=== PATIENT | female | born 1945 | race Caucasian/White ===

== ENCOUNTER → 2016-04-29 | Outpatient (CLI) | payer OTHER | LOC: BMCIMAGING 10:36 | PROVIDERS: ATTEND Internal Medicine Cardiovascular Disease | DX: E78.5 Hyperlipidemia, unspecified (principal); I10 Essential (primary) hypertension; E11.9 Type 2 diabetes mellitus without complications; I25.10 Atherosclerotic heart disease of native coronary artery without angina pectoris; Z86.73 Personal history of transient ischemic attack (TIA), and cerebral infarction without residual deficits ==

== ENCOUNTER 2016-08-09 01:17 | Emergency (ER) | payer OTHER ==
--- NOTE | 2016-08-09 01:19 | EDPHY ---
H & P HPI/ROS: HPI CHIEF COMPLAINT: Left foot possible foreign body HISTORY OF PRESENT ILLNESS: This patient is 71-year-old female coronary artery disease, diabetes, presents emergency room as she states she was pulling carpet earlier today and approximately 25 minutes ago or at 1:00 a.m. she stepped on either piece of water piece of metal she is unsure. She feels like it is still in the bottom of her left foot. Denies any other area trauma. She does tell me tetanus shot is up-to-date. She was barefoot. She tells me she no longer takes diabetes medicine she is off metformin. Past Medical History: Diabetes, coronary disease Past Surgical History: No recent surgical history Social History: Denies daily use of drugs, alcohol, tobacco Family History: Noncontributory ROS REVIEW OF SYSTEMS: A comprehensive 10 point review of systems is otherwise negative aside from elements mentioned in the history of present illness. Exam Constitutional appears well nontoxic in triage nursing summary reviewed, vital signs reviewed, awake/alert. Eyes normal conjunctivae and sclera, EOMI, PERRLA. HENT normal inspection, atraumatic, moist mucus membranes, no epistaxis, neck supple/ no meningismus, no raccoon eyes. Respiratory clear to auscultation bilaterally, normal breath sounds, no respiratory distress, no wheezing. Cardiovascular rate normal, regular rhythm, no murmur, no edema, distal pulses normal. Gastrointestinal soft, non-tender, no rebound, no guarding, normal bowel sounds, no distension, no pulsatile mass. Genitourinary no CVA tenderness. Musculoskeletal no midline vertebral tenderness, full range of motion, no calf swelling, no tenderness of extremities, no meningismus, good pulses, neurovascularly intact. Left foot: Plantar region, left foot, lateral aspect distal aspect there is a small puncture wound, no palpable foreign body. No signs of infection. Skin pink, warm, & dry, no rash, skin atraumatic. Neurologic awake, alert and oriented x 3, AAOx3, moves all 4 extremities equally, motor intact, sensory intact, CN II-XII intact, normal cerebellar, normal vision, normal speech. Psychiatric normal mood/affect. Heme/Lymph/Immune no lymphadenopathy. Differential Diagnosis: Includes but is not limited to in a particular order, puncture wound left foot, Medical Decision Making: Plan for this patient her tetanus shot is up-to-date, x-ray left foot. If unable to visualize foreign body on x-ray will explore wound to make sure there is no significant foreign body. Unclear if this is a metal or piece of wood. Metal should be radio uptake, would may be radiolucent. Re-evaluation: ED x-ray left foot: No opaque foreign body visualized on the x-ray. 0211AM: Procedure Note: Foreign Body Removal from Left Foot. Plantar Region. Under direct visualization there was a piece of wood in her bottom of her left foot. I was able to directly visualize this and remove it with hemostats. Approximately half an inch thin Speare like piece of wood was removed. The wound was copiously explored and cleaned. There is no further foreign body visualized. No arterial injury. No tendon injury. A dressing was placed. She tolerated this very well. No local anesthesia was needed. She understands to watch closely for further signs of infection this includes drainage, redness, pus. If she sees this she understands return emergency room. I do recommend she does warm soaks 3 times a day for next 3 days. Watch for infection Source: Patient - Personal History Tetanus Vaccine Date: 12/19 - Medical/Surgical History Hx Asthma: No Hx Chronic Respiratory Disease: No Hx Diabetes: Yes Hx Cardiac Disease: Yes Hx Renal Disease: No Hx Cirrhosis: No Hx Alcoholism: No Hx HIV/AIDS: No Hx Splenectomy or Spleen Trauma: No Other PMH: depression, HTN, CAD, 3 cardiac stents, bladder sling - Social History Smoking Status: Never smoked Constitutional: Initial Vital Signs Temperature (C) 36.3 C 08/09/16 01:24 Heart Rate 82 08/09/16 01:24 Respiratory Rate 16 08/09/16 01:24 Blood Pressure 147/84 H 08/09/16 01:24 O2 Sat (%) 94 08/09/16 01:24 O2 Delivery Mode Room Air Allergies/Adverse Reactions: Penicillins Allergy (Verified 08/09/16 01:27) RASH,ITCH Home Medications: Medication Instructions Recorded Amlodipine Besylate 2.5 mg PO .DAILY 03/07/11 Aspirin 81 mg PO 03/07/11 FENOFIBRATE NANOCRYSTALLIZED 145 mg PO .DAILY 03/07/11 [Tricor] Hydrocodone Bit/Acetaminophen 1 tab PO Q4-6PRN PRN 03/07/11 [Vicodin 5/500] Metformin HCl [Metformin HCl ER] 500 mg PO .DAILY 03/07/11 Atorvastatin Calcium [Lipitor 40 10/06/13 mg (*)] Metoprolol Succinate [Toprol Xl 10/06/13 200 mg] Venaflexin 10/06/13 predniSONE [predniSONE] 60 mg PO DAILY 5 Days 09/24/14 Departure - Departure Disposition: Home, Routine, Self-Care Clinical Impression: Puncture wound of foot Qualifiers: Encounter type: initial encounter Laterality: left Qualified Code(s): S91.332A - Puncture wound without foreign body, left foot, initial encounter Condition: Good Instructions: Puncture Wound (ED) Additional Instructions: 1.Watch for signs of infection. This includes redness, swelling, drainage, pus. 2. I do recommend warm soaks.
[2016-08-09 01:27] VITALS: BP 147/84; PULSE 82; RESP 16; TEMP 97.3; O2SAT 94
== END 2016-08-09 02:16 | disposition home or self-care (01) ==
LOC: CED 01:17
DX: S91.342A Puncture wound with foreign body, left foot, initial encounter (principal); E11.9 Type 2 diabetes mellitus without complications; I25.10 Atherosclerotic heart disease of native coronary artery without angina pectoris; Z79.82 Long term (current) use of aspirin; Z79.84 Long term (current) use of oral hypoglycemic drugs; Z95.5 Presence of coronary angioplasty implant and graft; W45.8XXA Other foreign body or object entering through skin, initial encounter
CPT/HCPCS: 73630-PO

== ENCOUNTER → 2017-04-28 | Outpatient (CLI) | payer OTHER | LOC: FIMAGING 11:41 | PROVIDERS: ATTEND Orthopaedic Surgery | DX: Z01.818 Encounter for other preprocedural examination (principal); M17.12 Unilateral primary osteoarthritis, left knee ==

== ENCOUNTER 2017-05-11 05:38 | Observation (INO) | payer OTHER ==
--- NOTE | 2017-04-29 14:41 | GHP ---
[f rep st] PREOP HISTORY AND PHYSICAL DATE OF ADMISSION: 05/11/2017 She will be an a.m. admission for surgery at [facility] on May 11, 2017. PROBLEM: Left knee degenerative arthritis. HISTORY OF PRESENT ILLNESS: The patient is a 72-year-old woman, admitted for a left total knee arthr oplasty. She has had progressive pain in both knees for the past 6-8 months. She has had 2 cortison e injections which only helped temporarily. Her left knee is more painful than the right. She had a n MRI of her left knee which shows a complex medial meniscus tear as well as degenerative arthritis i n the medial compartment. She has failed nonsurgical treatment. Her activities are very limited. S he will undergo a left total knee arthroplasty. PAST MEDICAL HISTORY: She had 3 cardiac stents inserted in 2006. She Is checked every year by her c ardiologist and has had stable cardiac status. She also was treated for diabetes, hypertension and e levated cholesterol. No history of DVT, hepatitis. She has sleep apnea and has a CPAP machine altho ugh she does not use it. CURRENT MEDICATIONS: Amlodipine 10 mg per day, atorvastatin 80 mg per day, Plavix 75 mg per day, dul oxetine daily for depression, losartan 100 mg/hydrochlorothiazide 25 mg daily, metformin 500 mg daily , metoprolol ER 100 mg tablets daily. DRUG ALLERGIES: She is allergic to topical penicillin, but not oral penicillin. Metal allergies: N one. Latex allergy: None. SOCIAL HISTORY: The patient is . She does not smoke cigarettes or drink alcohol. PHYSICAL EXAMINATION: VITAL SIGNS: Height 5 feet 4 inches. Weight 193 pounds. BMI 33.1. EYES: C onjunctivae and sclerae are clear. Pupils are round and reactive. MOUTH: Good oral hygiene. No lo ose teeth. CHEST: Clear. HEART: Regular rhythm, no murmurs. EXTREMITIES: Pertinent findings are limited to her left knee. She has a mild effusion. She is tender along the medial joint line. Full extension and 110 degrees of flexion. Her medial and lateral collateral ligaments are stable. Her films show cartilage space narrowing in the medial compartment of her left knee. IMPRESSION ON ADMISSION: 1. Left knee degenerative arthritis. She is prepared for a left total knee arthroplasty. 2. Coronary artery disease. 3. Treatment for hypertension. 4. Treatment for diabetes. 5. Treatment for elevated cholesterol. PLAN: She will undergo a left knee Cuco computer total knee arthroplasty. The surgery has been desc ribed to her, including the risks, complications, expectations, and recovery time. I have stressed t he importance of postoperative physical therapy. I have advised her that 85% of people get a good re sult from a total knee replacement. All her questions have been answered, and she consents to sandi cerna /[id number]/KATHLEEN
[2017-05-11] MEDS ORDERED: ceFAZolin 2 GM/SWFI 2 GM/20 ML SYR IVP ONE (05:48)
[2017-05-11] MEDS ORDERED: ONDANSETRON 4 MG/2 ML VIAL IVP ONE (05:48)
[2017-05-11] MEDS ORDERED: FAMOTIDINE 20 MG TAB PO ONE (05:48)
[2017-05-11] MEDS ORDERED: ACETAMINOPHEN 325 MG TAB PO ONE (05:48)
[2017-05-11] MEDS ORDERED: DEXAMETHASONE 4 MG/ML VIAL IVP ONE (05:48)
[2017-05-11] MEDS ORDERED: GABAPENTIN 300 MG CAP PO ONE (05:48)
[2017-05-11] MEDS ORDERED: LR 1,000 ML IV ONE (05:52)
[2017-05-11] MEDS ORDERED: POVIDONE-IODINE 20 ML in SODIUM CL IRRIG SOLUTION 500 ML IRR ONE (06:00)
[2017-05-11] MEDS ORDERED: ROPIVACAINE 0.2% 80 MG, EPINEPHrine 0.2 MG, KETOROLAC TROMETHAMINE 30 MG in SYRINGE 0 ML IU ONE (06:00)
[2017-05-11] MEDS ORDERED: TRANEXAMIC ACID IV ONE (06:00)
[2017-05-11] MEDS ORDERED: NS IV ONE (06:00)
[2017-05-11] MEDS ORDERED: BUPI/epINEPH/KETOROLAC IU ONE (06:00)
[2017-05-11] MEDS ORDERED: ceFAZolin 1 GM/5 ML SYR ONE (06:43)
--- NOTE | 2017-05-11 06:57 | PDHPUP ---
History & Physical Update H&P update statement: This history and physical update is based on an assessment of the patient which was completed after admission or registration (within 24 hours), but prior to the surgery/procedure. H&P update: H&P reviewed & patient examined
[2017-05-11] MEDS ORDERED: MIDAZOLAM 2 MG/2 ML VIAL IVP ONE (07:01)
[2017-05-11] MEDS ORDERED: MIDAZOLAM 2 MG/2 ML VIAL ONE (07:04)
[2017-05-11] MEDS ORDERED: fentaNYL 100 MCG/2 ML INJ ONE (07:13)
[2017-05-11] MEDS ORDERED: PROPOFOL/EMULSION 500 MG/50 ML BOTTLE IV ONE ×3 (07:13→09:04)
[2017-05-11] MEDS ORDERED: DEXAMETHASONE 4 MG/ML VIAL ONE (07:16)
[2017-05-11] MEDS ORDERED: ONDANSETRON 4 MG/2 ML VIAL ONE ×2 (07:16)
[2017-05-11] MEDS ORDERED: VANCOMYCIN 1 GM VIAL ONE (07:22)
[2017-05-11] MEDS ORDERED: LIDOCAINE 2% JELLY 5 ML TUBE ONE (07:29)
--- NOTE | 2017-05-11 07:49 | PDANEPAE ---
ANE History of Present Illness DJD L Knee s/f L TKA ANE Past Medical History - Cardiovascular History Hx Hypertension: Yes Hx Arrhythmias: No Hx Chest Pain: No Hx Coronary Artery / Peripheral Vascular Disease: Yes Hx CHF / Valvular Disease: No Hx Palpitations: No Cardiovascular History Comment: ELEVATED CHOL - Pulmonary History Hx COPD: No Hx Asthma/Reactive Airway Disease: No Hx Recent Upper Respiratory Infection: No Hx Oxygen in Use at Home: No Hx Sleep Apnea: Yes Sleep Apnea Screening Result - Last Documented: Positive Pulmonary History Comment: CHAN 09/2013 - Neurologic History Hx Cerebrovascular Accident: No Hx Seizures: No Hx Dementia: No Neurologic History Comment: TIA 01/2013 - Endocrine History Hx Diabetes: Yes Endocrine History Comment: NIDDM - Renal History Hx Renal Disorders: No - Liver History Hx Hepatic Disorders: No - Neurological & Psychiatric Hx Hx Neurological and Psychiatric Disorders: Yes Neurological / Psychiatric History Comment: DEPRESSION - Cancer History Hx Cancer: No - Congenital Disorder History Hx Congenital Disorders: No - GI History Hx Gastrointestinal Disorders: No - Other Health History Other Health History: NEG - Chronic Pain History Chronic Pain: Yes (NECK, LT FOOT) - Surgical History Prior Surgeries: BLADDER SLING 02/2011. STENTS X 3 2006. HENRY BREAST REDUCTION X 2. TUBAL LIGATION ANE Review of Systems Review of Systems: - Exercise capacity METS (RN): 4 METS ANE Patient History - Allergies Allergies/Adverse Reactions: No Known Allergies Allergy (Unverified 04/30/17 11:05) - Home Medications Home medications: home medication list seen and reviewed Home Medications: Atorvastatin Calcium [Lipitor 40 mg (*)] 80 mg PO DAILY 10/06/13 [Last Taken 04/25] Clopidogrel Bisulfate [Plavix (*)] 75 mg PO DAILY 04/28/17 [Last Taken 05/11/17] DULoxetine [Cymbalta 60 MG (*)] 60 mg PO DAILY 04/28/17 [Last Taken 05/11/17] Losartan/Hydrochlorothiazide [Losartan-Hctz 100-25 mg Tab] 1 each PO DAILY 04/28 [Last Taken 05/11/17] Cholecalciferol Vit D3 [Vitamin D3 (*)] 1,000 units PO DAILY 04/30/17 [Last Taken 05/11/17] Metoprolol Succinate Xr [Toprol Xl 100 mg (*)] 100 mg PO DAILY 04/30/17 [Last Taken 05/11/17] metFORMIN HCL [Glucophage 500 mg (*)] 500 mg PO BIDMEAL 04/30/17 [Last Taken 04/25] - NPO status NPO Since - Liquids (Date): 05/11/17 NPO Since - Liquids (Time): 03:45 NPO Since - Solids (Date): 05/10/17 NPO Since - Solids (Time): 18:15 - Anes Hx Anes Hx: no prior problems - Smoking Hx Smoking Status: Never smoked - Alcohol Use Alcohol Use: Rarely - Family Anes Hx Family Anes Hx: none Family Hx Anesthesia Complications: none ANE Labs/Vital Signs - Labs - CBC RBC: reviewed - Vital Signs Blood Pressure: 155/76 Heart Rate: 56 Respiratory Rate: 16 O2 Sat (%): 94 Height: 162.56 cm Weight: 83.915 kg ANE Physical Exam - Airway Neck exam: decreased ROM Mallampati Score: Class 2 Mouth exam: normal dental/mouth exam - Pulmonary Pulmonary: no respiratory distress - Cardiovascular Cardiovascular: regular rate and rhythym - ASA Status ASA Status: III ANE Anesthesia Plan Anesthesia Plan: spinal Regional Anesthesia: adductor canal FNB (post op catheter) Urgent/Emergent Case: Elisha faye completed preop but documented later for safe timely pt care
[2017-05-11] MEDS ORDERED: PHENYLEPHRINE HCL 100 MCG/ML SYR IVP PRN (09:21)
[2017-05-11] MEDS ORDERED: DEXAMETHASONE 4 MG/ML VIAL IVP PRN (09:21)
[2017-05-11] MEDS ORDERED: NALOXONE HCL 0.4 MG/ML INJ IVP PRN (09:21)
[2017-05-11] MEDS ORDERED: METOCLOPRAMIDE 10 MG/2 ML VIAL IVP PRN (09:21)
[2017-05-11] MEDS ORDERED: ACETAMINOPHEN 500 MG TAB PO PRN (09:21)
[2017-05-11] MEDS ORDERED: LABETALOL HCL 5 MG/ML 20 ML MDV IVP PRN (09:21)
[2017-05-11] MEDS ORDERED: LR 500 ML IV PRN (09:21)
[2017-05-11] MEDS ORDERED: ALBUTEROL 3 ML DEYVIAL IH PRN (09:21)
[2017-05-11] MEDS ORDERED: HYDROCODONE/APAP 5/325 TAB PO PRN (09:21)
[2017-05-11] MEDS ORDERED: oxyCODONE IR 5 MG TAB PO PRN ×2 (09:21→09:52)
[2017-05-11] MEDS ORDERED: PROMETHAZINE HCL 25 MG/ML INJ IVP PRN ×2 (09:21→09:52)
[2017-05-11] MEDS ORDERED: fentaNYL 100 MCG/2 ML INJ IVP PRN (09:21)
[2017-05-11] MEDS ORDERED: MEPERIDINE 25 MG/ML SYR IVP PRN (09:21)
[2017-05-11] MEDS ORDERED: ONDANSETRON 4 MG/2 ML VIAL IVP PRN ×2 (09:21→09:52)
[2017-05-11] MEDS ORDERED: TEMAZEPAM 15 MG CAP PO PRN (09:52)
[2017-05-11] MEDS ORDERED: KETOROLAC 30 MG/1 ML SDV IVP PRN (09:52)
[2017-05-11] MEDS ORDERED: ONDANSETRON DISINTEGRATING 4 MG TAB PO PRN (09:52)
[2017-05-11] MEDS ORDERED: diphenhydrAMINE 25 MG CAP PO PRN (09:52)
[2017-05-11] MEDS ORDERED: DIPHENOXYLATE/ATROPINE LOMOTIL 1 TAB PO PRN (09:52)
[2017-05-11] MEDS ORDERED: CYCLOBENZAPRINE 10 MG TAB PO PRN (09:52)
[2017-05-11] MEDS ORDERED: BISACODYL 10 MG SUPP PR PRN (09:52)
[2017-05-11] MEDS ORDERED: POLYETHYLENE GLYCOL 3350 17 GM PKT PO PRN (09:52)
[2017-05-11] MEDS ORDERED: NS 500 ML IV PRN (09:52)
[2017-05-11] MEDS ORDERED: MAGNESIUM HYDROXIDE 30 ML UDCUP PO PRN (09:52)
[2017-05-11] MEDS ORDERED: LACTULOSE 20 GM/30 ML UDCUP PO PRN (09:52)
[2017-05-11] MEDS ORDERED: traMADol 50 MG TAB PO PRN (09:52)
[2017-05-11] MEDS ORDERED: PROMETHAZINE HCL 25 MG SUPPR PR PRN (09:52)
[2017-05-11] MEDS ORDERED: LR 1,000 ML IV SCH (10:00)
--- NOTE | 2017-05-11 10:16 | POSTANESTH ---
Post Anesthetic Evaluation Cardiovascular Status: Normal, Stable Respiratory Status: Normal, Stable Level of Consciousness/Mental Status: Can Participate in Eval Pain Control: Adequate, Prn Tx Ordered Nausea/Vomiting Control: Adequate, Prn Tx Ordered Complications Possibly Related to Anesthesia: None Noted
--- NOTE | 2017-05-11 12:00 | POSTOPPROG ---
Post Op Note Date of Operation: 05/11/17 Surgeon: Abdiel Garcia Technical Research Scientist: Azeem/Sergio Anesthesiologist: Josef Anesthesia: IV Sedation, Spinal Post-op Diagnosis: left knee arthritis Procedure: L TKA Cuco Inf/Abcess present in the surg proc area at time of surgery?: No EBL: 50-100 (ACB in PACU)
[2017-05-11] MEDS: ACETAMINOPHEN 325 MG TAB PO SCH ×2 (12:59→18:14)
[2017-05-11] MEDS ORDERED: ceFAZolin 2 GM/DEXTROSE 100 ML IV SCH (14:00)
[2017-05-11] MEDS: ceFAZolin 2 GM/SWFI 2 GM/20 ML SYR IVP SCH ×2 (14:56→20:51)
--- NOTE | 2017-05-11 16:23 | ASMTCMCOM ---
CM Note CM Note Notes: Email from Paola at [facility]: patient is scheduled for mobile outpatient therapy per Dr Garcia recommendations. She is POD #0 TKA. PT/OT have not seen her yet. Paola from [facility] will follow up with patient and Case Management tomorrow; we are all in agreement that patient's needs will need to be assessed by the care team before making a definitive discharge plan. Date Signed: 05/11/2017 04:23 PM Electronically Signed By:Anay Liao RN
[2017-05-11] MEDS: metFORMIN HCL 500 MG TAB PO SCH (18:14)
--- NOTE | 2017-05-11 18:18 | GOP ---
[f rep st] OPERATIVE REPORT DATE OF OPERATION: 05/11/2017 SURGEON: Abdiel Garcia MD DIRECTOR OF SOCIAL SERVICES: 1. Oscar Gann, PAC. 2. [place] SURVIVAL SPECIALIST. ANESTHESIA: A combination of Marcaine spinal, IV sedation, and adductor canal block. PREOPERATIVE DIAGNOSIS: Left knee degenerative arthritis. POSTOPERATIVE DIAGNOSIS: Left knee degenerative arthritis. PROCEDURE PERFORMED: Left total knee arthroplasty, Mariela, posterior stabilized, Cuco robotic. FINDINGS: DESCRIPTION OF PROCEDURE: The patient was given 2 g of IV Ancef within 60 minutes of surgery. She a lso received IV tranexamic acid at a dose of 10 mg/kg. She was placed on the operating room table an d given spinal anesthesia with Marcaine by Dr. Fernandez. She was then placed supine and given IV sedation. A Frias catheter was not used. She wore a RADHA stocking and SCD on the nonoperative leg. Her left lower extremity was prepped with ChloraPrep from the upper thigh tourniquet to the tips of the toes. It was draped free using sterile sheets, stockinette, and Ioban plastic adhesive drape. H er lower leg was wrapped with compressive Coban. The World Health Organization time-out was performed to verify the correct patient identity and the c orrect surgical side and site. The Bly time-out was also performed. The 360Learning leg holding anastacia ce was sterilely attached to the operating room table and used throughout the procedure to help posit ion the knee. Two 3 mm partially threaded pins were inserted in a bicortical fashion in the anterome dial cortex of the tibia about 4-5 inches distal to the tibial tubercle. The computer array was adolfo ched. At this point, the leg was exsanguinated with a 6-inch compressive wrap, and the pneumatic caroline rniquet was inflated to 275 mmHg. A straight midline incision was made centered on the patella. Sub cutaneous tissues were sharply divided, and hemostasis was obtained using electrocautery. A medial s ubcutaneous flap was developed, and the capsule and synovium were opened in a medial parapatellar fas hion. Her medial capsule and periosteum were lightly elevated off the rim of the medial tibial plate au around to the posteromedial corner. Two 3 mm partially threaded pins were inserted into the medial aspect of the distal femur in the supr acondylar region. The femoral check point was inserted just anterior to the 2 pins. The tibial chec k point was inserted on the anteromedial cortex of the proximal tibia about an inch distal to the leona nt line. The arrays were attached to both femur and tibia. I confirmed that the arrays were visuali zed by the computer. The patella was prepared first. The original thickness of the patella was measured. Peripheral oste ophytes were removed. I cut a flat surface on the patella. She was sized for a 32 mm asymmetric pat elida which was 10 mm in thickness. I removed enough bone from the patella such that the remaining catia ne plus the thickness of the patellar component recreated the original thickness of the patella. The composite thickness was 23 mm. The bony anatomy of the knee was registered on the computer starting with the center of rotation of t he femoral head followed by the medial and lateral malleoli. Femoral anatomy was registered followed by the tibial anatomy. I then performed the dynamic joint balancing. I made a couple of adjustments on the femoral side to create symmetrical medial and lateral flexion gaps of about 19-20 mm in both full extension and 90 de grees of flexion. The robotic saw arm was brought in and registered. I made the distal cut followed by the posterior c hamfer cut, the anterior cut, and the anterior chamfer cut. The robotic arm was then used to make th e proximal tibial cut. I used appropriate jig to create a notch in the femur using the power saw. This was done to accommod ate the posterior stabilized femoral component. The size 4 femoral component was applied. I was car eful to center it on the distal femur. The tibia was sized for a size 4 component. The central thin punch was used. With the trial compone nts in place, I selected a 9 mm trial posterior stabilized tibial insert. The knee came to full exte nsion and flexed to 130 degrees. Her collateral ligaments were stable and balanced in full extension and 90 degrees of flexion. Her medial and lateral gaps were 19-20 mm in full extension and 90 degre es of flexion. The posterior compartment was cleared of meniscal remnants. Osteophytes were removed from the back o f her femoral condyles. 40 mL of the joint anesthetic cocktail was injected into the posterior capsu le, the periarticular structures, and the quadriceps muscle and tendon areas. A second dose of IV tr anexamic acid was given at a dose of 10 mg/kg. The surfaces were prepared for cementing. They were carefully cleaned with a pulsating lavage irriga tion and thoroughly dried. The CarboJet device was used to blow dry the cancellous surfaces. A doub le batch of high viscosity methylmethacrylate cement with 2 g of powdered vancomycin added was mixed. While it was still in a doughy state, all 3 components were cemented in place. Excess cement was r emoved before it hardened. The 9 mm posterior stabilized tibial insert was inserted and locked into place. The knee came to full extension. Her collateral ligaments were stable in full extension and 90 degre es of flexion. She easily flexed to 130 degrees. The tourniquet was deflated. Total tourniquet time was 1 hour and 24 minutes. The knee was thorough ly irrigated with saline followed by a dilute Betadine solution irrigation. The vastus medialis portion of the extensor mechanism was repaired with several interrupted figure-of -eight #2 FiberWire sutures. The capsule and synovium were closed first with multiple interrupted fi [id number] 0 PDS sutures, followed by a running barbed Ethicon Stratafix PDO suture. Subcutaneous tissues were closed with a running 0 barbed Ethicon Stratafix Monoderm suture. The skin was closed with a running 3-0 barbed Ethicon Stratafix Monoderm subcuticular suture. The skin was sealed with h rima-inch Steri-Strips. The wound was covered with a large sterile Mepilex waterproof dressing. Her knee was wrapped with a 6-inch compressive wrap. A long-leg RADHA stocking and SCD were applied, follo wed by the cooling device. I used a size 4 Mariela triathlon posterior stabilized femoral component, a size 4 triathlon primary tibial baseplate. The size 4, 9 mm triathlon X3 tibial bearing polyethylene, posterior stabilized. Triathlon X3 asymmetric patella, size 32 mm. The sponge and needle count were correct on 2 occasions. She was awakened from anesthesia, transferred to her [facility] and taken to PACU in satisfactor y condition. There were no recognized intraoperative complications. In the PACU, for additional postoperative pain control, Dr. Salvador Bahena performed an adductor canal bl ock with an indwelling adductor canal catheter. Sukumar Gann and [place] acted as surgical assistants. Their assistance was a medical necess ity for safe completion of the procedure. /[id number]/MODL
[2017-05-11] MEDS: FAMOTIDINE 20 MG TAB PO SCH (20:49)
[2017-05-11] MEDS: SENNOSIDES/DOCUSATE SODIUM TAB PO SCH (20:49)
[2017-05-12] MEDS: ACETAMINOPHEN 325 MG TAB PO SCH ×3 (00:09→13:40)
--- NOTE | 2017-05-12 08:09 | SOAPPROG ---
SOAP Progress Note Assessment/Plan: Assessment: POD #1, s/p L TKA, robot assist Awake, alert, afebrile. Minimal pain. Dressing clean and dry. Post op films look good. OOB yesterday. Voiding on own. Plan: PT/OT today. D/c to home later today. Pt would like home PT arranged. Standing leg alignment xray prior to d/c. 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
[2017-05-12 08:17] VITALS: RESP 16; TEMP 97.6; O2SAT 96
[2017-05-12] MEDS ORDERED: FERROUS SULFATE 140 MG TAB.ER PO SCH (09:00)
[2017-05-12] MEDS ORDERED: DULoxetine 60 MG CAP PO SCH (09:00)
[2017-05-12] MEDS ORDERED: ATORVASTATIN CALCIUM 40 MG TAB PO SCH (09:00)
[2017-05-12] MEDS ORDERED: NON-FORMULARY NEW DRUG (Losartan/Hydrochlorothiazide [Losartan-Hctz 100-25 Mg Tab] 1 EACH) PO SCH (09:00)
[2017-05-12] MEDS ORDERED: ASPIRIN 81 MG CHEWABLE TAB PO SCH (09:00)
[2017-05-12] MEDS ORDERED: LOSARTAN/HCTZ 50/12.5 1 TAB PO SCH (09:00)
[2017-05-12] MEDS ORDERED: METOPROLOL SUCCINATE XR 100 MG TAB PO SCH (09:00)
[2017-05-12] MEDS: SENNOSIDES/DOCUSATE SODIUM TAB PO SCH (09:17)
[2017-05-12] MEDS: FAMOTIDINE 20 MG TAB PO SCH (09:18)
[2017-05-12] MEDS: metFORMIN HCL 500 MG TAB PO SCH (09:18)
[2017-05-12 09:21] VITALS: BP 152/76; PULSE 62
--- NOTE | 2017-05-12 10:26 | SOAPPROG ---
SOAP Progress Note Assessment/Plan: Assessment: POD 1 after TKA with indwelling catheter for POPC per Dr aGrcia request. Patient comfortable, stable. Catheter removed after 20 ml of 0.5% plain ropivacaine injected slowly in 2-3 ml increments. Negative aspiration. Catheter tip intact. patient denies any discomfort. 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
--- NOTE | 2017-05-12 11:32 | GDS ---
[f rep st] DISCHARGE SUMMARY ADMISSION DIAGNOSIS: Severe left knee osteoarthritis. DISCHARGE DIAGNOSIS: Severe left knee osteoarthritis. OPERATIONS PERFORMED: Left total knee arthroplasty, robot assisted. POSTOPERATIVE COMPLICATIONS: None. CONDITION ON DISCHARGE: Improved. HOSPITAL COURSE: The patient was admitted to the hospital on the day of surgery. Her admission whit e blood cell count was 5.27, hemoglobin was 13.0, and hematocrit was 37.7. Her BUN and creatinine we re normal. Electrolyte panel was also normal. On the same day, the patient underwent a left total knee arthroplasty, robot assisted, with Marcaine spinal anesthesia and IV sedation. A Frias catheter was not used. She was treated with multimodal D VT prophylaxis, including SCDs, RADHA stockings, aspirin, and early mobilization. On the 1st postoperative day, the patient's hemoglobin and hematocrit were 11.0 and 31.1. She did no t require a blood transfusion. She was voiding on her own without problems. She made good progress with knee range of motion and ambulation. An adductor canal was provided to the left leg for additio nal pain control. By the time of discharge, the patient was independent with her walker and afebrile. DISPOSITION: The patient has been discharged to her home. POSTOPERATIVE CARE PLAN: She will have home physical therapy. RADHA stockings x1 week. Baby aspirin daily x21 days. She will resume her Plavix as well. Weightbearing as tolerated. MEDICATIONS: She has prescriptions for oxycodone and tramadol for pain control. Zofran for nausea. FOLLOWUP: She will be seen back in the office on May 24, 2017. If there are any problems before t hen, she will call the office. /[id number]/MODL
--- NOTE | 2017-05-12 12:42 | ASMTCMCOM ---
CM Note CM Note Notes: Pt medically stable for d/c with [facility] with [facility] reports orders obtained by MD office. Referral sent in [employer]. Date Signed: 05/12/2017 12:41 PM Electronically Signed By:BLAS Martinez
--- NOTE | 2017-05-12 14:29 | ASDISCHSUM ---
Discharge Information Plan Status:Home with Home Health Medically Cleared to Leave: Discharge Date:05/12/2017 02:06 PM CM D/C Disposition:Home Health Service ADT D/C Disposition:Home Health Service Projected Discharge Date:05/12/2017 11:00 AM Transportation at D/C: Discharge Delay Reason: Follow-Up Date:05/12/2017 11:00 AM Discharge Slot: Final Diagnosis: Placement Information Referral Type:*Home Health Care Services Referral ID:[id number] Provider Name:[facility] [place] Address 1:[address] [place] [address] Address 2: City:[place] Selection Factors: State:[place] Patient Contact Information Contact Name:EVE Relationship: Address:[address] City:[place] Alternate Phone: State/Zip Code:[place] [address] Email: Financial Information Financial Class:Medicare Primary Plan Desc:MEDICARE OUTPATIENT Primary Plan Number:[id number] Secondary Plan Desc:[facility] Secondary Plan Number:[id number] Assessment Information [facility] CM Progress Note CM Note CM Note Notes: Email from Paola at [facility]: patient is scheduled for mobile outpatient therapy per Dr Garcia recommendations. She is POD #0 TKA. PT/OT have not seen her yet. Paola from [facility] will follow up with patient and Case Management tomorrow; we are all in agreement that patient's needs will need to be assessed by the care team before making a definitive discharge plan. Date Signed: 05/11/2017 04:23 PM Electronically Signed By:Anay Liao RN [facility] CM Progress Note CM Note CM Note Notes: Pt medically stable for d/c with [facility] Paola webster with TS reports orders obtained by MD office. Referral sent in [facility]. Date Signed: 05/12/2017 12:41 PM Electronically Signed By:BLAS Martinez Intervention Information
== END 2017-05-12 14:06 | disposition home health service (06) ==
LOC: F3N 05:38
PROVIDERS: ADMIT Orthopaedic Surgery; ATTEND Orthopaedic Surgery
PROC: 0SRD0JZ Replacement of Left Knee Joint with Synthetic Substitute, Open Approach (ICD-10-PCS; principal; 2017-05-11 07:15)
PROC: 8E0Y0CZ Robotic Assisted Procedure of Lower Extremity, Open Approach (ICD-10-PCS; principal; 2017-05-11 07:15)
DX: M17.12 Unilateral primary osteoarthritis, left knee (principal); I25.10 Atherosclerotic heart disease of native coronary artery without angina pectoris; E78.5 Hyperlipidemia, unspecified; E11.9 Type 2 diabetes mellitus without complications; I10 Essential (primary) hypertension; G47.33 Obstructive sleep apnea (adult) (pediatric); Z95.5 Presence of coronary angioplasty implant and graft
CPT/HCPCS: 27447; 73560; 77073; 88311; 97116; 97161; 97165; 97530; 97535; C1713; C1776; G8978; G8979; G8980; G8987; G8988; G8989; J0171; J0690; J1100; J1885; J2250; J2370; J2405; J2704; J3010; J3370

== ENCOUNTER 2017-05-23 18:31 | Emergency (ER) | payer OTHER ==
--- NOTE | 2017-05-23 18:45 | CPEKG ---
Heart Rate: 52 RR Interval: 1154 P-R Interval: 164 QRSD Interval: 76 QT Interval: 452 QTC Interval: 421 P Fallon: 33 QRS Fallon: 1 T Wave Fallon: 111 EKG Severity - ABNORMAL ECG - EKG Impression: SINUS RHYTHM EKG Impression: PROBABLE INFERIOR INFARCT, OLD EKG Impression: LATERAL LEADS ARE ALSO INVOLVED Electronically Signed By: Waldemar Padilla 23-May-2017 18:56:14
[2017-05-23] MEDS ORDERED: MECLIZINE HCL 25 MG TAB PO ONE (18:48)
--- NOTE | 2017-05-23 18:53 | EDPHY ---
H & P Time Seen by Provider: 05/23/17 18:31 HPI/ROS: CHIEF COMPLAINT: Room spinning HISTORY OF PRESENT ILLNESS: Patient had knee replacement on the left side a couple of weeks ago and was recovering at home, was getting ready to go to [facility] when she had sudden onset of feeling of the room spinning which was worse with turning her head certain directions and associated with severe nausea. She had 7 or 8 episodes each of which lasted several seconds, was brought in by EMS and received oral and IV Zofran in route. Symptoms were severe but not associated with headache or visual symptoms, weakness or numbness in extremities, speech difficulty or thought problems. Not better worse with anything but nausea was better with Zofran. REVIEW OF SYSTEMS: Eye: no change in vision ENT: no sore throat or earache or hearing loss or tinnitus Cardiac: no chest pain or syncope Pulmonary: no cough or SOB Abdomen: No abdominal pain Musculoskeletal: No neck pain, does have some symptoms from her recent knee surgery Skin: no rash Neuro: no headache Constitutional: no fever : no urinary symptoms A comprehensive 10 point review of systems is otherwise negative aside from elements mentioned in the history of present illness. PAST MEDICAL HISTORY: 3 cardiac stents, TIA which was transient visual loss, left knee replacement, depression. Social history: Here with her spouse General Appearance: Alert and conversant, cooperative. Eyes: No scleral icterus. Pupils equal and reactive extraocular motion intact with slight nystagmus to the left. ENT, Mouth: Normal mucous membranes. Normal tympanic membranes. Respiratory: Normal respiratory effort, breath sounds equal, lungs are clear to auscultation. Cardiovascular: Regular rate and rhythm. Gastrointestinal: Abdomen is soft and non tender. Neurological: Alert, face symmetric, normal motor and sensory in extremities. Speech is fluent, normal [id number] bilaterally, good material handler strength, extraocular motion intact, [id number] not tested because of left knee replacement. Skin: Warm and dry, no rashes. Musculoskeletal: No peripheral edema. Psychiatric: Not agitated. Emergency Department course/MDM: 12-lead EKG interpreted by me; official reading is in trace master. My interpretation is sinus rhythm with inferior Q-waves noted a rate 52. On arrival the patient does not have symptoms. Oral meclizine 25 mg. She does have symptoms more likely to be peripheral vertigo, with rapid onset, worse with movement the head, no other neurologic symptoms, associated severe nausea, no headache. 1941: Asymptomatic, ambulatory without assistance or ataxia or any dizziness, stable for discharge. Smoking Status: Never smoked Constitutional: Initial Vital Signs Temperature (C) 36.9 C 05/23/17 18:31 Heart Rate 52 L 05/23/17 18:31 Respiratory Rate 16 05/23/17 18:31 Blood Pressure 145/59 H 05/23/17 18:31 O2 Sat (%) 96 05/23/17 18:31 O2 Delivery Mode Room Air Allergies/Adverse Reactions: penicillin topical Allergy (Uncoded 05/23/17 18:50) Home Medications: Medication Instructions Recorded Atorvastatin Calcium [Lipitor 40 80 mg PO DAILY 10/06/13 mg (*)] Clopidogrel Bisulfate [Plavix (*)] 75 mg PO DAILY 04/28/17 DULoxetine [Cymbalta 60 MG (*)] 60 mg PO DAILY 04/28/17 Losartan/Hydrochlorothiazide 1 each PO DAILY 04/28/17 [Losartan-Hctz 100-25 mg Tab] Cholecalciferol Vit D3 [Vitamin D3 1,000 units PO DAILY 04/30/17 (*)] Metoprolol Succinate Xr [Toprol Xl 100 mg PO DAILY 04/30/17 100 mg (*)] metFORMIN HCL [Glucophage 500 mg 500 mg PO BIDMEAL 04/30/17 (*)] Acetaminophen [Tylenol 325mg (*)] 650 mg PO Q6HRS tab 05/12/17 Aspirin [Aspirin 81mg (*)] 81 mg PO BID tab.chew 05/12/17 Ferrous Sulfate [Slow Fe 140 MG 140 mg PO DAILY tab.er 05/12/17 (*)] Ondansetron Odt [Zofran Odt 4 mg 4 mg PO Q4HRS PRN tab 05/12/17 (*)] Sennosides/Docusate Sodium 1 - 2 tab PO BID tab 05/12/17 [Senokot-S] celeCOXIB [Celebrex (*)] 200 mg PO DAILY cap 05/12/17 oxyCODONE IR [Oxycodone Ir (*)] 5 - 10 mg PO Q3HRS PRN tab 05/12/17 traMADol [Ultram 50 mg (*)] 50 mg PO Q6HRS PRN tab 05/12/17 Meclizine HCl [Meclizine HCl 25 mg 25 mg PO Q6 PRN #15 tab 05/23/17 (RX,OTC)] Ondansetron Odt [Zofran Odt] 4 mg PO Q4PRN #6 tab 05/23/17 Medical Decision Making Differential Diagnosis: Differential diagnosis considered for dizziness including but not limited to peripheral and central causes of vertigo, cerebellar infarct or other central neurologic cause, vertebral dissection or other vascular, orthostatic causes including dehydration, and blood loss. - Data Points Medications Given: Discontinued Medications Meclizine HCl (Meclizine Hcl) 25 mg PO EDNOW ONE Stop: 05/23/17 18:49 Last Admin: 05/23/17 18:50 Dose: 25 mg Ondansetron HCl (Zofran Odt 4 Mg Prepack#2) 1 btl TAKEHOME EDNOW ONE Stop: 05/23/17 19:46 Last Admin: 05/23/17 19:54 Dose: 1 btl Departure - Departure Disposition: Home, Routine, Self-Care Clinical Impression: Acute onset of severe vertigo Condition: Good Instructions: Ondansetron (By mouth), Vertigo (ED), Benign Paroxysmal Positional Vertigo (ED) Referrals: Lon Foote MD [Medical Doctor] - As per Instructions Prescriptions: Meclizine HCl [Meclizine HCl 25 mg (RX,OTC)] 25 mg PO Q6 PRN #15 tab PRN Reason: Dizziness Ondansetron Odt [Zofran Odt] 4 mg PO Q4PRN #6 tab
[2017-05-23] MEDS ORDERED: ONDANSETRON 4MG PREPACK#2 BTL TAKEHOME ONE (19:45)
[2017-05-23 19:48] VITALS: BP 167/69
== END 2017-05-23 19:57 | disposition home or self-care (01) ==
LOC: EDUNIT# → EDBD
DX: R42 Dizziness and giddiness (principal); Z79.82 Long term (current) use of aspirin; Z95.5 Presence of coronary angioplasty implant and graft

== ENCOUNTER → 2017-06-10 | Outpatient (CLI) | payer OTHER | LOC: FIMAGING 16:11 | PROVIDERS: ATTEND Physician Assistant | DX: M79.662 Pain in left lower leg (principal); Z96.652 Presence of left artificial knee joint ==

== ENCOUNTER → 2018-07-06 | Outpatient (CLI) | payer OTHER | LOC: FIMAGING 12:57 ==